=== PATIENT | female | born 1930 | race Caucasian/White ===

== ENCOUNTER → 2017-01-24 | Outpatient (CLI) | payer OTHER ==
[~2017-01-24] MED LIST: ADVAIR 500-501 EACH IH; ADVAIR 5001 DISK W/D PO; ALPRAZOLAM0.25 MG PO; ANUSOL SUPP1 SUPP PR; ATORVASTATIN CA10 MG PO; B COMPLEX PO; CELEBREX100 MG PO; COMBIVENT INH14.7 G1 INH; COMBIVENT INH14.7 GM INH; FLAXSEED OIL1000 M1 PO; FLEXERIL PO; FLONASE16 GM; HYDROCODONE-APA1 T55 PO; LETROZOLE2.5 M1 BC; LEVOTHROID50 MCG PO; LIPITOR PO; LISINOPRIL10 MG PO; LORTAB 7.5-5001 TAB PO; MAGNESIUM200 MG PO; MIRALAX17 GM PO; NEXIUM PO; OMEPRAZOLE40 MG PO; PHENERGAN PO; PRANDIN1 MG PO; PRANDIN2 MG PO; PREMARIN PO; PRINIVIL10 MG PO; SENNA S TABLET1 TAB PO; SINGULAIR PO; SYNTHROID PO; TYLENOL #3 PO; VIT B-12 PO; VITAL-D RX TABL1 TAB PO; VITAMIN B COMP1 EACH PO; VITAMIN D-32000 UNIT PO; ZOLOFT PO; ZOLOFT50 MG PO; ZYRTEC PO; [UNRECOGNIZED DRUG - OTHER] PO
--- NOTE | ~2017-01-24 | MY6 ---
[facility] A Service of [facility] & [facility] RADIOLOGY TEXT RESULTS PATIENT: ANCELMO CALABRESE LOCATION: [facility] : 30 UNIT #: [id number] AGE: [address]: Judit Guzman MD SEX: F ORDER DR: [id number] [facility] [address] [place], [place] [address] [id number] O MR#: [id number] Acc #: [id number] NAME: ANCELMO CALABRESE. : 1930 SEX: F STUDY DATE/TIME: 01/24/2017 14:06 UNIT: [facility] ROOM: STUDY DESCRIPTION: MY Mammogram Dx Dig Steve Attending Physician: Judit Guzman M.D. Referring Physician: Judit Guzman M.D. Ordering Physician: Jduit Guzman M.D. Primary Care Physician: Judit Guzman M.D. MEDICAL IMAGING REPORT This report is preliminary unless electronic signature is present EXAM Bilateral digital diagnostic mammogram with CAD DATE 01/24/2017 HISTORY 86-year-old female with history of left breast cancer with lumpectomy in 2012. Calcifications previously seen in the upper outer left breast thought to be benign, and additional diagnostic mammogram followup in one year was recommended. COMPARISON Bilateral diagnostic mammogram 11/19/2015. Left breast diagnostic mammogram 08/16/2015 and 12/02/2014. Bilateral diagnostic mammogram 11/17/2014. FINDINGS CC and MLO views were obtained of each breast, and extended craniocaudal lateral view of the left breast. The study was performed utilizing digital technique and reviewed with an FDA-approved CAD device. Additional high-resolution spot magnification views were obtained of the upper outer left breast posterior third. Scattered fibroglandular densities are present bilaterally. More focal heterogeneously dense fibroglandular tissue is demonstrated within the upper outer left breast with architectural distortion, thought to correspond to the patient's previous lumpectomy site. At this same location, spot magnification views were obtained. There is a grouping of coarse calcifications which appears more dense and coarse and benign than even on the 11/19/2015 examination. No new nodule is seen on either side. No nonsurgical architectural distortion features are identified. [facility] A Service of [facility] & [facility] RADIOLOGY TEXT RESULTS PATIENT: ANCELMO CALABRESE LOCATION: [facility] : 30 UNIT #: [id number] AGE: [address]: Judit Guzman MD SEX: F ORDER DR: IMPRESSION Groupings of calcifications in the upper outer left breast near the lumpectomy bed are more coarse today and in keeping with evolving benign dystrophic calcifications in the lumpectomy bed. There are no findings suspicious for malignancy on today's examination. The patient is advised to return for routine bilateral screening mammograms cycle in 1 year. The findings and recommendations were discussed with the patient today in the radiology department. Patient's over the age of 40 are entered into a reminder system with target due date for the next mammogram. A result letter will be sent to the patient. BIRADS: 2 Benign findings. Dictated by... Yoli Schroeder M.D. THIS IS AN ELECTRONICALLY VERIFIED REPORT Yoli Schroeder M.D. at 01/26/2017 7:14 AM [facility]/rome TD: 01/24/2017 15:40 JOB #: [id number] MEDICAL IMAGING REPORT Page 1 of 1 COPY
== END | disposition home or self-care (01) ==
LOC: CMAM 13:51
DX: Z08 Encounter for follow-up examination after completed treatment for malignant neoplasm (principal); R92.1 Mammographic calcification found on diagnostic imaging of breast; Z85.3 Personal history of malignant neoplasm of breast; Z98.890 Other specified postprocedural states
CPT/HCPCS: G0204

== ENCOUNTER → 2017-05-17 | Outpatient (CLI) | payer OTHER ==
--- NOTE | ~2017-05-17 | HM ---
Unit #: [id number] #: [id number] Patient: ANCELMO CALABRESE [id number] [address] [address] [id number] O MR#: [id number] NAME: ANCELMO CALABRESE. : 1930 SEX: F STUDY DATE/TIME: 05/25/2017 UNIT: CE ROOM: STUDY DESCRIPTION: Holter monitor Attending Physician: Manjula Diamond Referring Physician: Manjula Diamond Primary Care Physician: Judit Guzman M.D. CARDIOLOGY REPORT EXAM Holter monitor. DATE APPLIED May 17, 2017. DATE SCANNED May 24, 2017. ORDERED BY MANJULA Diamond. READ BY Joshua Morrison M.D. INDICATION Bradycardia. SUMMARY Patient was monitored for 24 hours. Total of 76,407 QRS complexes were analyzed. 6,494 were supraventricular, 8% of the total, 55 were ventricular beats, less than 1% of the total. The minimum heart rate of 33 beats per minute occurred at 5:20 a.m., maximum heart rate, 98 beats per minute, occurred at approximately 8:40 p.m. The longest R-R interval of 2.6 seconds occurred during a period of sinus arrhythmia. A review of the heart rate histogram showed a normal distribution of heart rates with the lower heart rates during the nighttime hours, although between 6 and 7 p.m. there were also very low heart rates. Activity during this time is unknown. SUPRAVENTRICULAR ECTOPY: Total of 6,494 beats with 1,044 bigeminal cycles, 264 runs totaling 1,021 beats. The longest run was only 71 beats per minute, 28 beats. The fastest run was 3 beats in duration, 123 beats per minute. NOTE: During the SVT run, there were no P waves seen, very much in distinction to the other rhythm strips. There were no symptoms during this time. SYMPTOMS: None. IMPRESSION 1. Overall bradycardia with several pauses, greater than 2 seconds. No pauses longer than this were seen. Unit #: [id number] #: [id number] Patient: ANCELMO CALABRESE 2. Frequent supraventricular ectopy, and despite many runs, most of these were slow. 3. No symptoms. 4. No significant ventricular ectopy. Dictated by... Rolando Baldwin/estephania TD: 05/26/2017 08:06 JOB #: [id number] CARDIOLOGY REPORT Page 1 of 1 X Joshua Morrison MD HOLTER MONITOR REPORT
== END | disposition home or self-care (01) ==
LOC: CEKG 12:43
DX: R00.1 Bradycardia, unspecified (principal); I49.3 Ventricular premature depolarization
CPT/HCPCS: 93225; 93226